=== PATIENT | male | born 1975 | race Caucasian/White ===

== ENCOUNTER 2018-12-26 07:53 | Day surgery (SDC) | payer MEDICARE, MEDICAID ==
[2018-12-24 16:27] LABS: BASOPHILS % (AUTO) 0.1 % (0-1); EOSINOPHILS # (AUTO) 0.1 X10'3 (0-0.9); EOSINOPHILS % (AUTO) 1.3 % (0-6); LYMPHOCYTES # (AUTO) 2.1 X10'3 (1.1-4.8); LYMPHOCYTES % (AUTO) 35.6 % (21-51); MEAN CORPUSCULAR HEMOGLOBIN 29.6 PG (27.0-31.0); MEAN CORPUSCULAR HGB CONC 33.1 g/dL (33.0-36.5); MEAN CORPUSCULAR VOLUME 89.4 FL (78-98); MEAN PLATELET VOLUME 8.7 FL (7.4-10.4); MONOCYTES # (AUTO) 0.4 X10'3 (0-0.9); MONOCYTES % (AUTO) 6.9 % (2-12); NEUTROPHILS # (AUTO) 3.3 X10'3 (1.8-7.7); NEUTROPHILS % (AUTO) 56.1 % (42-75); PRE OP HEMATOCRIT 42.9 % (42.0-52.0); PRE OP HEMOGLOBIN 14.2 g/dL (14.0-17.9); PRE OP PLATELET COUNT 170 X10'3 (140-440); RED CELL DISTRIBUTION WIDTH 13.1 % (11.5-14.5)
[2018-12-24 17:01] LABS: BLOOD UREA NITROGEN 5 MG/DL (7-18); BUN/CREATININE RATIO 3.9 (5.4-32.0); CALCIUM 8.8 MG/DL (8.5-10.1); CHLORIDE 106 MMOL/L (99-107); CREATININE 1.27 MG/DL (0.60-1.10); PRE OP ANION GAP 7 (8-16); PRE OP BILIRUB, TOTAL 0.6 MG/DL (0.0-1.0); PRE OP GLUCOSE 99 MG/DL (70-104); PRE OP POTASSIUM 3.8 MMOL/L (3.4-5.1); PRE OP SODIUM 142 MMOL/L (135-145); TOTAL CARBON DIOXIDE 29.1 MMOL/L (24-32); eGFR 61 ML/MIN
[2018-12-24 17:02] LABS: ALBUMIN 4.1 G/DL (3.4-5.0); ALBUMIN/GLOBULIN RATIO 1.4 (1.1-1.5); ALKALINE PHOSPHATASE 74 IU/L (46-116); PRE OP ALT 75 U/L (30-65); PRE OP AST 25 U/L (10-37); TOTAL PROTEIN 7.1 G/DL (6.4-8.2)
[2018-12-24 17:44] LABS: CLARITY,URINE CLEAR (Clear); COLOR,URINE YELLOW (Yellow); GLUCOSE, URINE NEGATIVE (Neg); KETONES,URINE NEGATIVE (Neg); LEUKOCYTE ESTERASE ,URINE NEGATIVE (Neg); NITRITES, URINE NEGATIVE (Neg); OCCULT BLOOD,URINE MODERATE (Neg); PH,URINE 5.5 (4.8-8.0); PROTEIN,URINE NEGATIVE (Neg); UROBILINOGEN,URINE 0.2 E.U/dL (0.2-1.0)
[2018-12-24 17:50] LABS: BACTERIA,URINE NONE SEEN /HPF (Neg); RBC,URINE 0-2 /HPF (0-2); SQUAMOUS EPITHELIAL CELL,UR NONE SEEN /LPF (FEW); UA COLLECTION TYPE VOIDED; WBC,URINE NONE SEEN /HPF (0-4)
[~2018-12-26] VITALS: Ht 172.7 cm; Wt 64.6 kg
[2018-12-26] VITALS (11 sets, daily range): BP systolic 111–137; BP diastolic 74–91
[~2018-12-26 07:53] MED LIST: ARIP30TA3 PO; FLO0.4C PO; TEMA15CA PO; famotidine 20mg tablet PO ONE; ringers solution, lacted 1,000 ML IV SCH
[2018-12-26] MEDS ORDERED: ceFOXitin 2 GM ADDVANTGE BAG 50 ML IV ONE (09:45)
[2018-12-26] MEDS ORDERED: ceFOXitin 2 GM ADDvantage bag 100 ML IV ONE (09:45)
[2018-12-26] MEDS ORDERED: ringers solution, lacted 1,000 ML IV SCH ×2 (10:16→11:57)
[2018-12-26] MEDS ORDERED: ondansetron/PF 4mg/2ml inj IV PRN ×2 (10:20→12:00)
[2018-12-26] MEDS ORDERED: morphine 4 MG/ML inj SYRINge IV PRN ×4 (10:20→12:00)
[2018-12-26] MEDS ORDERED: fentaNYL/PF 50MCG/1 ML 2ML syringe IV PRN ×4 (10:20→12:00)
[2018-12-26] MEDS ORDERED: labetalol 20mg/4ml (5mg/ml) syringe IV PRN ×2 (10:20→12:00)
[2018-12-26] MEDS ORDERED: hydrALAZINE 20mg/ml inj. IV PRN ×2 (10:20→12:00)
[2018-12-26] MEDS ORDERED: BUPIVAcaine/PF 2.5mg/ml (0.25%) 10ml vial ONE (11:51)
[2018-12-26] MEDS ORDERED: sevoflurane 250ml liquid IH ONE (12:00)
[2018-12-26] MEDS ORDERED: neostigmine methylsulfate 1 MG/ML 10ml vial ONE (12:00)
[2018-12-26] MEDS ORDERED: fentaNYL/PF 50MCG/1 ML 2ML syringe ONE (12:01)
[2018-12-26] MEDS ORDERED: midazolam 2 mg/2 ml injection ONE (12:01)
[2018-12-26] MEDS ORDERED: propofol inj 20 ML IV ONE (12:05)
[2018-12-26] MEDS ORDERED: LIDOcaine 2% (20mg/ml) 5ml vial ONE (12:05)
[2018-12-26] MEDS ORDERED: glycopyrrolate 0.2mg/ml inj ONE (12:06)
[2018-12-26] MEDS ORDERED: rocuronium 10mg/ml inj IV ONE (12:06)
[2018-12-26] MEDS ORDERED: dexamethasone sod phosphate 4mg/ml inj. ONE (12:06)
[2018-12-26] MEDS ORDERED: ondansetron/PF 4mg/2ml inj ONE (12:06)
--- NOTE | 2018-12-26 13:05 | NUR ---
Received from OR via [facility], accompanied by Anesthesiologist Allan and report given by Anesthesiolgist. Responsive to questions but sleepy, VS stable, O2 100% on mask, lap sites CDI with bandaids, 20G R hand 100cc/hr IVF.
--- NOTE | 2018-12-26 14:45 | NUR ---
Pt discharged by wheelchair to vehicle without incident, family at bedside. Pt alert and stable, walking, tolerating fluids. IV dc'd, dressings to abd remain CDI. Family and patient state understanding of discharge information and know to follow up in 2 weeks. Pain meds received by family from Bedside delivery system. All questions answered.
== END 2018-12-26 14:45 | disposition home or self-care (01) ==
LOC: PAS 07:53
PROVIDERS: ATTEND Surgery
DX: K80.10 Calculus of gallbladder with chronic cholecystitis without obstruction (principal); F20.9 Schizophrenia, unspecified; Z87.891 Personal history of nicotine dependence; Z87.440 Personal history of urinary (tract) infections; Z88.8 Allergy status to other drugs, medicaments and biological substances; Z88.5 Allergy status to narcotic agent; Z79.899 Other long term (current) drug therapy; Z88.1 Allergy status to other antibiotic agents; Z88.2 Allergy status to sulfonamides; Z98.890 Other specified postprocedural states; Z90.49 Acquired absence of other specified parts of digestive tract
CPT/HCPCS: 36415; 47562; 80053; 81001; 82948; 85025; 93005; J0694; J1100; J2001; J2250; J2270; J2405; J2704; J3010; J3490; J7120; 88304; A4215; A4618; A6250; A7000; J2710